=== PATIENT | female | born 1985 | race Caucasian/White ===

== ENCOUNTER 2025-04-20 10:09 | Outpatient (AMB) | payer OTHER, SELFPAY ==
--- NOTE | 2025-04-20 10:13 | MHC.OFFVIS ---
Vital Signs 04/20/25 10:17 Height 5 ft 7 in Weight 183 lb BMI 28.7 BP 130/80 Blood Pressure Location Rt brachial Position Sitting Respiration 16 Pulse 87 Pulse Source Pulse Oximeter Pulse Oximetry (%) 98 Oxygen Delivery Method Room Air Intake Visit Reasons: Dizziness/ Headaches Digital Media Intern Required: No Allergies No Known Allergies Allergy (Verified 04/20/25 10:18) HPI Comments Details: Leidy is a 39-year-old female patient with a past medical history of anxiety, PTSD, hyperlipidemia, here today for headache evaluation. She has had headaches since childhood but less intense and frequent. About 1 year ago her headaches became fairly constant. She is now experiencing daily headaches lasting the majority of the day. When headaches started she had severe neck pain with decreased ROM. She took magnesium for this and over time her neck ROM and neck pain improved. Her headacehs however still persisted. Her pain is primarially left sided but can be mild and present to the right as well. Pain starts occipitally and and radiates to the front of her head and to the retroorbital area. The pain is shooting and pressure like and associated with light sensitivity as well as dizziness. She does not have sound sensitivity or nausea. She also notes crepitus with movement of head back and fourth. Headache characteristics: Time of onset: Worse over the last year Location:Left occipital Radiation:Frontal and retroorbital Positional component:No Character:Shooting and pressure Severity:moderate Duration: All day Frequency:Daily Acute aggravating factors:Unknown Acute relieving factors:None Associated symptoms:light sensitivity as well as dizziness Aura:No Other related background information: Sleep:Reports poor sleep with chronic insomnia. She uses cannibis which helps her sleep but she never feels rested. She does snore. She has daytime somnolence. She has not had a sleep study. Stressors: Works and is in school. Also a mother of a 4-year-old Hydration: About 20 oz per day Caffeine intake:2 10oz coffees per day Alcohol intake: Very rare Substance use: Marijuana for sleep Tobacco use:Vapes tobacco 20 times per day Last eye exam: About 1 year ago Last dental visit: About 2 years ago. Possible clenching or grinding but not definite. History of head injury: None Family planning considerations: Had tubes removed Past medication trials: Tylenol- No significant benefit Naproxen- No significant benefit Ibuprofen- No significant benefit Cyclobenzaprine- severe somnolence in the morning after awakening Prior workup: CT head without contrast 07/17/2024: Normal study [facility] Medical History (Updated 04/20/25 @ 10:52 by Leidy Lazo CNP) PTSD (post-traumatic stress disorder) Overweight Lightheadedness Intractable headache HLD (hyperlipidemia) Blurry vision Anxiety Review of Systems Const All systems reviewed & are unremarkable except as noted in HPI and below Physical Exam Vital Signs: Last Vital Signs Pulse 87 04/20/25 10:17 Resp 16 04/20/25 10:17 BP 130/80 04/20/25 10:17 Pulse Ox 98 04/20/25 10:17 Oxygen Delivery Method Room Air 04/20/25 10:17 BMI result Body Mass Index 28.7 Const General: cooperative, healthy appearing, comfortable and no acute distress Nutritional Appearance: well nourished Orientation/consciousness: patient oriented x3 Limitations: no limitations HEENT Head: Yes normal to inspection and Yes normocephalic Eyes General: appearance normal, both eyes and all related structures Visual [place]: normal visual [place]ork by confrontation Alignment and Position: alignment normal Periorbital: periorbital findings normal Eyelids: Yes eyelids normal Conjunctivae: conjunctivae normal Sclerae: sclerae normal Direct Ophthalmoscopy: normal light reflex, no papilledema and fundi normal bilaterally Neck Neck: Yes normal visual inspection and Yes full ROM Back/Spine/Pelvis Other: Bilateral trapezius tenderness Cervical Spine: normal cervical lordosis Thoracic/Lumbar Spine: thoracic and lumbar spine normal to inspection Neuro General: patient oriented x3, tone normal and deep tendon reflexes 2+ bilaterally Cranial nerves: Yes CN's II-XII intact bilaterally and Yes Facial sensation intact/muscles of mastication intact Cognition (Neuro): normal cognition Gait exam (Neuro): Normal gait present Motor exam (neuro): 5/5 motor strength present throughout and no tremor noted Sensory Exam: double simultaneous stimulation for sensation normal Romberg Test: Negative Pupils: Normal pupillary reactivity/response: bilateral Psych Appearance: grossly normal Mental Status: mental status grossly normal Speech and movement: Normal speech and movement present and Clear speech present Affect: normal affect Attitude: cooperative Thought process: Normal thought process present Thought content: Normal thought content present Insight: Good insight present (Psych) Judgement: Good judgement present (Psych) Assessment & Plan Assessment & Plan (1) Chronic tension type headache: Code(s): G44.229 - Chronic tension-type headache, not intractable Category: Medical Plan: Leidy is a 39-year-old female patient with a past medical history of anxiety, PTSD, hyperlipidemia, here today for headache evaluation. Headaches are daily and moderate in intensity with associated light sensitivity but no noise sensitivity or nausea. Headaches by criteria for chronic tension-type headache. She does have very tight trapezius muscles but no obvious trigger points. She does not have an occipital notch tenderness. I am recommending a course of tizanidine nightly in conjunction with physical therapy. She is concerned about her cervical spine due to some crepitus. We could consider C-spine imaging to rule out cervical radiculopathy as cause for headache if headaches continue despite treatment measures. We could also consider trigger point injections if needed. -4 mg tizanidine at bedtime -physical therapy for myofascial release -future considerations: C-spine MRI to rule out radiculopathy, trigger point injections for treatment -follow up in the clinic in 2 months Plan -Sleep study - -Consider c-spine MRI r/o cervical radic if needd Orders: Orders PT Evaluation and Treatment Today G44.229 - Chronic tension-type headache, not intractable Medications: New tizanidine 4 mg PO BEDTIME PRN 30 tabs 5RF muscle spasticity 30 days Coding Level of Care Code New Pt Level 4 (56290) Diagnoses Chronic tension type headache G44.229
[2025-04-20 10:17] VITALS: BP 130/80; PULSE 87; RESP 16; O2SAT 98; BMI 28.7
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
--- OUTSIDE RECORDS SUMMARY | 2025-04-20 12:19 | XMS_ITS ---
Author Name [facility] Organization Unknown Care Team Organization Name Specialty Phone Email Start Date End Da te [facility] Cira Quezada MD Primary Care 04/03/2022 01/13/2024
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
--- OUTSIDE RECORDS SUMMARY | 2025-04-20 12:19 | XMS_ITS | Patient Health Record ---
Author Organization [facility] Address [address] [place] [address] Care Team Providers Care Appliance Parts Counter Clerk Name Role Phone WEI JUARES Unavailable [phone] Reason For Referral No Information Medications Medication SIG (Take, Route, Fr equency, Duration) Notes Start Date End Date Status Multi-Vitamin - 1 tablet Orally Once a day; Duration: 30 day(s) Active Social History Tobacco Use: Social History Observation Description Date Details (start date - stop date) Current Smoker NA - NA Tobacco Use/Smoking Question Answer Notes Are you a current smoker How often do you smoke cigarettes? every day How many cigarettes a day do you smoke? 6-10 Alcohol Screen (Audit-C) Question Answer Notes Did you have a drink contain ing alcohol in the past year? Yes How often did you have a dri nk containing alcohol in the past year? Monthly or less (1 point) How many drinks did you have on a typical day when you were drinking in the past year? 1 or 2 drinks (0 point) Points 1 Interpretation Negative Sexual History Question Answer Notes Had sex in the past 12 months (vaginal, oral, or anal)? Yes with Men only Use protection? No Have you ever had a Sexually transmitted disease ? No Problems Problem Type SNOMED Code ICD Code Onset Dates Problem Status W/U Status Risk Notes Problem Deep dyspareunia (003720456) Deep dyspareunia (N94.12) Active confirmed Plan Of Treatment Pending Test Test Name Order Date ULTRASOUND: PELVIC W/TRANSVAGINAL 2018 Insurance Providers Payer Name Payer Address Payer Phone Subscriber Number Group Number Insured Name Patient Relationship to Insured Coverage Start Date Coverage End Date [facility] [address] [address] [place] [address] [id number] MIRIAM SANDOVAL Self - patient is the insured Medical (General) History Surgical History Surgery Date(Month/Year) Hospitalization History Reason Date(Month/Year) 1 Vaginal Delivery
== END 2025-04-20 11:01 | disposition home or self-care (01) ==
LOC: HO.HSM 10:09
PROVIDERS: PCP Internal Medicine; Visit Provider Nurse Practitioner
DX: G44.229 Chronic tension-type headache, not intractable (principal)
CPT/HCPCS: 99204

== ENCOUNTER → 2025-04-20 10:09 | Outpatient (BNVA) | payer OTHER, SELFPAY | PROVIDERS: PCP Internal Medicine; Visit Provider Nurse Practitioner | DX: G44.229 Chronic tension-type headache, not intractable (principal) | CPT/HCPCS: 99202 ==